=== PATIENT | female | born 1955 | race Caucasian/White ===

== ENCOUNTER → 2016-11-14 | Day surgery (SDC) | payer OTHER ==
[~2016-11-14] MED LIST: AL-MAG HYDROX-S30 M1 PO; ALBUTEROL 0.5ML INH; ALBUTEROL MININEB NEB; ALBUTEROL20 ml INH; ALL DAY ALLERGY10 M3 PO; ANASTROZOLE1 MG PO; APRESOLINE PO; ARIMIDEX1 MG PO; ASPIRIN81 M1 PO; ATARAX PO; AUGMENTIN875 MG PO; BACLOFEN10 MG PO; BACTRIM DS TABL1 TA1 PO; BACTROBAN15 GM TOP; BACTROBAN22 GM TP; CALCIUM + VITAM1 TAB PO; CALCIUM 500 +1 EAC2 PO; CALCIUM 500 +1 EAC4 PO; CALCIUM 500+D C1 TAB PO; CALCIUM ACETAT667 M1; CALCIUM ACETAT667 M1 PO; CALCIUM CARBON500 MG PO; CARBIDOPA-LEVO1 TAB PO; CLARITIN10 MG PO; CLONAZEPAM2 MG PO; CLONIDINE HCL0.1 MG PO; COLACE PO; COMPAZINE10 M1 PO; CORTISONE14 GM TOP; COUMADIN PO; COUMADIN1 MG PO; COUMADIN2.5 MG PO; COUMADIN3 MG PO; COUMADIN5 MG PO; DESENEX45 GM EXT; DIFLUCAN100 MG PO; DILAUDID2 MG PO; DOC-Q-LACE100 MG PO; EFFEXOR PO; EFFEXOR XR150 MG PO; EFFEXOR XR75 MG PO; EFFEXOR-XR150 MG PO; EFFEXOR50 MG PO; EFFEXOR75 MG PO; FENTANYL1 EAC1 TD; GABAPENTIN100 M1 PO; GABAPENTIN300 M2 PO; GABAPENTIN600 MG PO; GABAPENTIN800 MG PO; KEFLEX PO; KEFLEX500 MG PO; KLONOPIN PO; KLONOPIN1 M1; KLONOPIN1 M1 PO; KLONOPIN1 MG PO; KLONOPIN2 MG PO; LEVAQUIN750 MG PO; LEVEMIR FL100 UNIT/1 SQ; LEVEMIR FL100 UNIT/1 SUBQ; LEVOTHROID112 MCG PO; LEVOXYL112 MCG PO; LOPRESSOR; LORATADINE PO; LOTRISONE CREAM45 GM TOP; LOVENOX80 MG/0.8 INJ; LYRICA PO; MACROBID100 M1 PO; MACROBID100 MG PO; MACRODANTIN PO; MEDROL DOSEPAK4 MG PO; METHADONE HCL10 MG PO; METHADONE PO; METOPROLOL SUCC25 MG PO; METOPROLOL TAR25 MG PO; METOPROLOL TART25 MG PO; MILLIPRED DP5 M1 PO; MORGIDOX100 MG PO; MOTRIN600 MG PO; MYSOLINE50 M1 PO; NEURONTIN PO; NEURONTIN800 MG PO; NICOTINE TRANSD21 MG EXT; NOVOLOG FL100 UNIT/1; NOVOLOG100 U/M2; OXYCODON-ACETA1 EAC1 PO; OXYCODONE HCL10 MG PO; OXYCODONE HCL30 MG PO; OXYCODONE HCL5 M1 PO; OXYCODONE15 M1 PO; OXYCODONE15 MG PO; OXYGEN; PERCOCET 10/3251 TAB PO; PERCOCET 5-3251 TAB PO; PERCOCET10 PO; PHENERGAN PO; PHENERGAN25 MG PO; PREDNISONE PO; PRIMIDONE PO; PROAIR RESPICL90 MCG INH; REGLAN10 MG PO; REGLAN5 MG PO; SEROQUEL PO; SEROQUEL XR300 M1 PO; SEROQUEL300 M1; SEROQUEL300 MG PO; SINEMET CR1 TAB 25/1 PO; SINEMET-25/1001 TAB PO; ST JOSEPH ASPIR81 MG PO; SYMBICORT INH; SYNTHROID PO; SYNTHROID0.1 MG PO; SYNTHROID0.2 MG PO; SYNTHROID112 MCG PO; SYNTHROID125 PO; TESSALON200 MG PO; TOPAMAX PO; TRAMADOL HCL50 M1 PO; TRAMADOL HCL50 M2 PO; TYLOX 5/500 CAP1 CAP PO; ULTRAM PO; VENLAFAXINE HCL50 MG PO; VICODIN 5/500 T1 TAB PO; VICODIN PO; VOLTAREN 0.1%2.5 M1 TOP; WARFARIN SODIUM3 MG PO; ZANAFLEX PO; ZOFRAN PO; ZOVIRAX800 MG PO; ZYRTEC PO; ZYRTEC10 M1 PO; ZYRTEC10 M2 PO
--- NOTE | ~2016-11-14 | EKG ---
PATIENT: JEIMY STAFFORD UNIT #: [id number] Ventricular Rate: 93 BPM Atrial Rate: 93 BPM P-R Interval: 148 ms QRS Duration: 82 ms Q-T Interval: 356 ms QTC Calculation(Bezet): 442 ms P Rut[place]: 61 degrees Calculated R [place]: 56 degrees Calculated T [place]: 86 degrees Diagnosis Line: Normal sinus rhythm Diagnosis Line: Normal ECG Diagnosis Line: When compared with ECG of 18-AUG-2016 06:19, Diagnosis Line: No significant change was found Diagnosis Line: Confirmed by MARIANA WOMACK MD ([id number]) on Diagnosis Line: 11/15/2016 4:35:03 PM INTERPRETING MD: SHANTA LANDERS
--- NOTE | ~2016-11-14 | OR ---
Unit #: [id number] #: [id number] Patient: JEIMY STAFFORD [id number] [address] [address] [id number] O MR#: [id number] NAME: JEIMY STAFFORD ROOM: Date of Procedure: 11/14/2016 Admission Date: 11/14/2016 Surgeon: Randolph Banks M.D. : 1955 Attending Physician: Randolph Banks M.D. Referring Physician: Randolph Banks M.D. Primary Care Physician: Chuyita Trevino M.D. OPERATIVE REPORT PREOPERATIVE DIAGNOSIS Left hydronephrosis. POSTOPERATIVE DIAGNOSIS Left hydronephrosis. PROCEDURES PERFORMED 1. Cystoscopy. 2. Left retrograde pyelogram. 3. Interpretation of left retrograde pyelogram. 4. Left 7-Bolivian x 28 cm double-J stent change. ANESTHESIA General. INDICATIONS FOR PROCEDURE Ms. Stafford is a 61-year-old female with chronic left hydronephrosis. She is managed with a stent. The risks, benefits, and alternatives including bleeding, infection, damage to adjacent structures, need for further surgery, as well as risk of anesthesia were explained to the patient. Informed consent was obtained. She wished to proceed. DESCRIPTION OF PROCEDURE The patient was taken to the operative suite and properly identified. After the application of satisfactory general anesthetic, the patient was placed in dorsal lithotomy position. All pressure points were padded to satisfaction of surgical, anesthetic, and nursing teams. The genitalia were prepped and draped in usual sterile fashion. I introduced a rigid 22-Bolivian cystoscope. The bladder had a mild amount of debris, but no tumors, stones, or masses. We grasped the left double-J stent and brought out the meatus. I passed a 0.035 Sensor wire. I back loaded. I removed the stent. I passed Winthrop catheter over the wire and shot a left retrograde pyelogram. Interpretations were as follows. Interpretation of left retrograde pyelogram: There was a single collecting system. There were no filling defects. There was mild hydronephrosis. I replaced the wire, passed a 7-Bolivian x 28 cm double-J stent, which coiled in the upper pole of the kidney and in the bladder. No strings attached. Bladder was emptied. The scope was removed. The Uro-jet was passed. The patient tolerated the procedure well without complication. She was transported stable and extubated to the PACU. Unit #: [id number] #: [id number] Patient: JEIMY STAFFORD Dictated by... Barbara Greenwood/florinda TD: 11/15/2016 02:53 JOB #: [id number] OPERATIVE REPORT Page 1 of 1 X Randolph Banks MD X PROCEDURE OPERATIVE NOTE
[2016-11-14 15:18] LABS: BASOPHIL# 0.1 X10e3 (0-0.3); EOSINOPHIL# 0.3 X10e3 (0-0.7); EOSINOPHIL% 2.8 % (0.0-7.0); HEMATOCRIT 46.4 % (35.0-45.0); LYMPHOCYTE# 1.9 X10e3 (1.0-3.5); LYMPHOCYTE% 18.4 % (17.0-45.0); MEAN CELL VOLUME 93.3 FL (83-96); MEAN CORPUSCULAR HEMOGLOBIN 30.1 PG (28-34); MEAN CORPUSCULAR HGB CONC 32.3 g/dL (30-36); MEAN PLATELET VOLUME 10.1 FL (6.5-11.5); MONOCYTE# 0.7 X10e3 (0-1.0); MONOCYTE% 6.9 % (3.0-12.0); NEUTROPHIL# 7.2 X10e3 (1.5-7.1); NEUTROPHIL% 70.9 % (40-75); PLATELET COUNT 219 X10e3 (140-420); RED BLOOD COUNT 4.98 X10e (3.90-5.30); RED CELL DISTRIBUTION WIDTH 15.1 % (11.0-15.5); WHITE BLOOD COUNT 10.1 X10e3 (4.0-10.5)
[2016-11-14 15:24] LABS: DIFF IND NO
[2016-11-14 15:44] LABS: CALCIUM SERUM 9.5 mg/dL (8.4-10.2); CREATININE SERUM 0.8 mg/dL (0.6-1.4); GLOM FILT RATE Estimated 80.2 mL/min (>60); POTASSIUM 3.8 mmol/L (3.5-5.1)
[2016-11-14 15:53] LABS: INR 1.3; PROTHROMBIN TIME (PATIENT) 13.7 SECONDS (9.6-11.5)
== END | disposition home or self-care (01) ==
LOC: CSUR 14:16
PROVIDERS: Urology
DX: N13.30 Unspecified hydronephrosis (principal); I10 Essential (primary) hypertension; E11.9 Type 2 diabetes mellitus without complications; J44.9 Chronic obstructive pulmonary disease, unspecified; E66.01 Morbid (severe) obesity due to excess calories; F17.210 Nicotine dependence, cigarettes, uncomplicated; Z68.41 Body mass index [BMI] 40.0-44.9, adult; Z87.442 Personal history of urinary calculi; Z88.8 Allergy status to other drugs, medicaments and biological substances; Z79.01 Long term (current) use of anticoagulants; Z79.4 Long term (current) use of insulin; Z79.899 Other long term (current) drug therapy; Z98.51 Tubal ligation status; Z98.890 Other specified postprocedural states
CPT/HCPCS: 80048; 82947; 85025; 85610; 93005; C2617; J0696; J1885; J3010

== ENCOUNTER → 2017-02-20 | Day surgery (SDC) | payer OTHER ==
--- NOTE | ~2017-02-20 | OR ---
Unit #: [id number] #: [id number] Patient: JEIMY STAFFORD [id number] [address] [place], [place] [address] [id number] O MR#: [id number] NAME: JEIMY STAFFORD ROOM: Date of Procedure: 02/20/2017 Admission Date: 02/20/2017 Surgeon: Randolph Banks M.D. : 1955 Attending Physician: Randolph Banks M.D. Primary Care Physician: Chuyita Trevino M.D. OPERATIVE REPORT PREOPERATIVE DIAGNOSIS Left hydronephrosis. POSTOPERATIVE DIAGNOSIS Left hydronephrosis. PROCEDURE PERFORMED 1. Cystoscopy. 2. Left retrograde pyelogram. 3. Interpretation of left retrograde pyelogram. 4. Left 7-Palauan x 28 cm double-J stent change. ANESTHESIA General. INDICATIONS FOR PROCEDURE The patient is a pleasant 61-year-old female with chronic left hydronephrosis. She presents for stent change. The risks, benefits, and alternatives including bleeding, infection, damage to adjacent structures, need for further surgery, as well as risk of anesthesia were explained to the patient. Informed consent was obtained. She wished to proceed. DESCRIPTION OF PROCEDURE The patient was taken to the operative suite and properly identified. After the application of satisfactory general anesthetic, the patient was placed in a dorsal lithotomy position. Genitalia were prepped and draped in usual sterile fashion. All pressure points were padded to satisfaction of surgical, anesthetic, and nursing teams. I introduced a rigid 22-Palauan cystoscope. The bladder had a mild amount of debris, the stent was grasped and brought out through the meatus. I passed a 0.035 Sensor wire, which coiled in the left renal pelvis. I removed the stent and passed a Pollack catheter over the wire. I gently shot a left retrograde pyelogram. The findings were as follows. Interpretation of left retrograde pyelogram, there was no hydronephrosis, but there was delayed drainage past the distal ureter. There was a single collecting system. There were no filling defects. I replaced the wire and passed the 7-Palauan x 28 cm double-J stent which coiled in the renal pelvis and in the bladder. No string was attached. Bladder was emptied. The scope was removed. The Uro-jet was passed. The patient tolerated the procedure well without complication. She was transported stable and extubated to the PACU. Unit #: [id number] #: [id number] Patient: JEIMY STAFFORD PLAN The plan will be to repeat her stent change in 3 months. Dictated by... Barbara Greenwood/florinda TD: 02/20/2017 23:48 JOB #: [id number] OPERATIVE REPORT Page 1 of 1 X Randolph Banks MD X PROCEDURE OPERATIVE NOTE
[2017-02-20 11:52] LABS: URINE SOURCE CLEAN CATCH
[2017-02-20 12:03] LABS: URINE APPEARANCE CLOUDY; URINE BILIRUBIN NEG (NEG); URINE BLOOD 3+ (NEG); URINE COLOR YELLOW; URINE GLUCOSE NEG (NEG); URINE KETONE NEG (NEG); URINE LEUKOCYTE ESTERASE 3+ (NEG); URINE NITRATE NEG (NEG); URINE PROTEIN 2+ (NEG); URINE SPECIFIC GRAVITY 1.015 (1.003-1.035)
[2017-02-20 12:06] LABS: CULTURE INDICATED? YES; URBCS1 AUWI INNUM /[HPF] (0-2); URINE BACTERIA AUWI NEG (NEGATIVE); URINE SQUAMOUS EPITHELIAL CELL OCC /[HPF]; UWBCS1 AUWI INNUM (0-5)
[2017-02-20 12:14] LABS: BASOPHIL# 0.1 X10e3 (0-0.3); BASOPHIL% 1.1 % (0-2.5); EOSINOPHIL# 0.3 X10e3 (0-0.7); EOSINOPHIL% 3.3 % (0.0-7.0); HEMATOCRIT 40.3 % (35.0-45.0); HEMOGLOBIN 13.4 gm/dL (12.0-16.0); LYMPHOCYTE# 1.7 X10e3 (1.0-3.5); LYMPHOCYTE% 21.5 % (17.0-45.0); MEAN CELL VOLUME 92.3 FL (83-96); MEAN CORPUSCULAR HEMOGLOBIN 30.6 PG (28-34); MEAN CORPUSCULAR HGB CONC 33.2 g/dL (30-36); MEAN PLATELET VOLUME 9.5 FL (6.5-11.5); MONOCYTE# 0.8 X10e3 (0-1.0); MONOCYTE% 10.2 % (3.0-12.0); NEUTROPHIL% 63.9 % (40-75); PLATELET COUNT 207 X10e3 (140-420); RED BLOOD COUNT 4.37 X10e (3.90-5.30); RED CELL DISTRIBUTION WIDTH 15.1 % (11.0-15.5); WHITE BLOOD COUNT 7.8 X10e3 (4.0-10.5)
[2017-02-20 12:16] LABS: DIFF IND NO
[2017-02-20 12:27] LABS: INR 1.2; PROTHROMBIN TIME (PATIENT) 13.5 SECONDS (10.0-11.7)
[2017-02-20 12:28] LABS: URINE YEAST PRESENT
[2017-02-20 12:45] LABS: BUN/CREATININE RATIO 18.88; CALCIUM SERUM 8.9 mg/dL (8.4-10.2); CREATININE SERUM 0.9 mg/dL (0.6-1.4); GLOM FILT RATE Estimated 69.5 mL/min (>60); POTASSIUM 3.7 mmol/L (3.5-5.1)
== END | disposition home or self-care (01) ==
LOC: CSUR 11:02
PROVIDERS: Urology
DX: N13.30 Unspecified hydronephrosis (principal); E03.9 Hypothyroidism, unspecified; J44.9 Chronic obstructive pulmonary disease, unspecified; E11.9 Type 2 diabetes mellitus without complications; E66.9 Obesity, unspecified; I10 Essential (primary) hypertension; F17.210 Nicotine dependence, cigarettes, uncomplicated; Z86.711 Personal history of pulmonary embolism; Z68.41 Body mass index [BMI] 40.0-44.9, adult; Z87.442 Personal history of urinary calculi; Z85.3 Personal history of malignant neoplasm of breast; Z88.8 Allergy status to other drugs, medicaments and biological substances; Z79.01 Long term (current) use of anticoagulants; Z99.81 Dependence on supplemental oxygen; Z79.4 Long term (current) use of insulin; Z79.899 Other long term (current) drug therapy; Z98.51 Tubal ligation status; Z98.890 Other specified postprocedural states; Z90.12 Acquired absence of left breast and nipple
CPT/HCPCS: 80048; 81003; 82947; 85025; 85610; 87086; 87088; C2617; J0696; J2250; J2270; J3010

== ENCOUNTER 2017-04-03 22:20 | Emergency (ER) | payer OTHER ==
[2017-04-04 00:11] LABS: URINE SOURCE CATH
[2017-04-04 00:20] LABS: URINE APPEARANCE CLEAR; URINE BLOOD 3+ (NEG); URINE COLOR DK YELLOW; URINE GLUCOSE >1000 MG/DL (NEG); URINE KETONE TRACE (NEG); URINE LEUKOCYTE ESTERASE 2+ (NEG); URINE NITRATE POS (NEG); URINE PROTEIN 1+ (NEG); URINE SPECIFIC GRAVITY 1.021 (1.003-1.035)
[2017-04-04 00:23] LABS: CULTURE INDICATED? YES; URBCS1 AUWI 200-300 /[HPF] (0-2); URINE BACTERIA AUWI NEG (NEGATIVE); URINE SQUAMOUS EPITHELIAL CELL NONE SEEN /[HPF]; UWBCS1 AUWI 50-100 (0-5)
[2017-04-04 00:33] LABS: URINE BILIRUBIN POS (NEG)
[2017-04-04 01:01] LABS: BASOPHIL# 0.1 X10e3 (0-0.3); EOSINOPHIL# 0.2 X10e3 (0-0.7); EOSINOPHIL% 1.5 % (0.0-7.0); HEMATOCRIT 41.7 % (35.0-45.0); LYMPHOCYTE# 1.9 X10e3 (1.0-3.5); LYMPHOCYTE% 17.7 % (17.0-45.0); MEAN CELL VOLUME 91.3 FL (83-96); MEAN CORPUSCULAR HEMOGLOBIN 30.6 PG (28-34); MEAN CORPUSCULAR HGB CONC 33.5 g/dL (30-36); MEAN PLATELET VOLUME 9.2 FL (6.5-11.5); MONOCYTE# 0.9 X10e3 (0-1.0); MONOCYTE% 8.6 % (3.0-12.0); NEUTROPHIL# 7.8 X10e3 (1.5-7.1); NEUTROPHIL% 71.2 % (40-75); PLATELET COUNT 253 X10e3 (140-420); RED BLOOD COUNT 4.57 X10e (3.90-5.30); RED CELL DISTRIBUTION WIDTH 14.7 % (11.0-15.5)
[2017-04-04 01:05] LABS: DIFF IND NO
[2017-04-04 01:19] LABS: BUN/CREATININE RATIO 26.66; CALCIUM SERUM 9.2 mg/dL (8.4-10.2); CREATININE SERUM 0.9 mg/dL (0.6-1.4); GLOM FILT RATE Estimated 69.5 mL/min (>60); POTASSIUM 4.2 mmol/L (3.5-5.1)
== END 2017-04-04 01:50 | disposition home or self-care (01) ==
LOC: CED 22:20
PROVIDERS: Emergency Medicine
DX: E16.2 Hypoglycemia, unspecified (principal); N39.0 Urinary tract infection, site not specified; I10 Essential (primary) hypertension; J44.9 Chronic obstructive pulmonary disease, unspecified; Z98.890 Other specified postprocedural states; F17.200 Nicotine dependence, unspecified, uncomplicated; Z88.8 Allergy status to other drugs, medicaments and biological substances; Z79.899 Other long term (current) drug therapy
CPT/HCPCS: 36415; 80048; 81003; 82947; 85025; 87086; 99284